=== PATIENT | male | born 1945 | race Caucasian/White ===

== ENCOUNTER 2016-11-27 15:00 | Inpatient (IN) | payer MEDICARE, OTHER ==
[~2016-11-27] VITALS: Ht 175.3 cm; Wt 83.8 kg
--- NOTE | ~2016-11-27 | DS ---
PATIENT'S NAME: SUZIE FREDERICK [facility] AGE: 71 Y [address] ROOM: [place] [address] LOCATION: G3N ADMIT DATE: 12/03/2016 Discharge Summary DISCHARGE DATE: 12/05/2016 FAMILY PHYSICIAN: Goran Cleveland MD ATTENDING PHYSICIAN: Sav Ness PRIMARY DIAGNOSIS: Degenerative joint disease of the left knee. SECONDARY DIAGNOSIS: 1. Tobacco use. 2. Diabetes mellitus. 3. Hypertension. 4. Dyslipidemia. PROCEDURE PERFORMED: Left total knee arthroplasty. HISTORY: The patient is a 71-year-old male, who presents with advanced left knee degenerative joint disease and associated severely compromised activities of daily living. The patient has decided to proceed with total knee arthroplasty after having been thoroughly counseled regarding the risks, benefits, limitations and alternatives. Please refer to the outpatient clinic notes and admission history and physical for this patient. HOSPITAL COURSE: The patient underwent a left total knee arthroplasty on 12/03/2016 without complications. Spinal anesthesia plus adductor canal block plus periarticular local anesthesia was utilized. The patient received 24 hours of perioperative prophylactic antibiotics and remained hemodynamically stable, neurovascularly intact throughout the entire hospital course. The postoperative prophylactic deep venous thrombosis prophylaxis consisted of Xarelto, early mobilization and pneumatic compression devices. Daily physical therapy for gait training, transfer training range of motion and quadriceps isometric exercises were received. The patient progressed well in physical therapy. On the date of discharge, 12/05/2016, the incision at the knee was healing well and showed no signs of infection. DISPOSITION: Home. DISCHARGE ACTIVITY: The patient is to bear weight as tolerated with range of motion and quadriceps isometric exercises as instructed. The operative extremity is to be elevated at least 90% of the day. There is to be sterile 4x4 gauze dressings to the incision daily. Dr. Ness is to be notified immediately if there is any increased pain, fevers, chills, erythema, or drainage. DISCHARGE MEDICATIONS: PATIENT'S NAME: SUZIE FREDERICK [facility] AGE: 71 Y [address] ROOM: [address] [address] LOCATION: G3N ADMIT DATE: 12/03/2016 Discharge Summary DISCHARGE DATE: 12/05/2016 FAMILY PHYSICIAN: Goran Cleveland MD ATTENDING PHYSICIAN: Sav Ness 1. Xarelto 10 mg 1 tablet p.o. daily for 12 days for postoperative DVT prophylaxis. 2. Hydromorphone 2 mg 1 to 2 tablets p.o. every 4 hours p.r.n. for pain. 3. Diazepam 5 mg 1/2 to 1 tablet p.o. every 6 hours p.r.n. for muscle spasms. 4. Nicotine 21 mg patch. He is then instructed to continue all of his other preadmission medications as instructed by his internal medicine doctor. FOLLOWUP: Followup appointment is to be with Dr. Ness's office on 12/10/2016 for his initial followup appointment with x-rays of the knee and suture removal at that time. YVES TRAMMELL PA-C FOR SAV NESS MD SMW/modl /[id number] d: 12/10/16 0530 t: 12/10/16 0911, DISCHARGE SUMMARY
--- NOTE | ~2016-11-27 | OR ---
PATIENT'S NAME: SUZIE FREDERICK [facility] AGE: 71 Y [address] ROOM: [place] [id number] LOCATION: [facility] ADMIT DATE: 12/03/2016 OR/Procedure Report DISCHARGE DATE: FAMILY PHYSICIAN: Goran Cleveland MD ATTENDING PHYSICIAN: SAV NESS SURGEON: Sav Ness MD ANNEALING OVEN OPERATOR: 1. Huey Wade CST/ELA. 2. Sav Dewey. DATE OF PROCEDURE: 12/03/2016 PRE-OP DIAGNOSIS: Degenerative joint disease left knee. POST-OP DIAGNOSIS: Degenerative joint disease left knee. OPERATION: Left total knee arthroplasty with computer navigation. ANESTHESIA: Spinal anesthesia plus adductor canal block plus periarticular local anesthesia (ropivacaine with epinephrine and Toradol). ESTIMATED BLOOD LOSS: Less than 10 mL. DRAIN: None. SPECIMEN: None. COMPLICATIONS: None. IMPLANT SYSTEM: [place] Triathlon Size 6 left posterior stabilized femoral component Size 5 universal modular tibial baseplate 9 mm posterior stabilized size 5 X3 tibial polyethylene insert 32 mm Oval X3 patella component (triple pegged). INDICATIONS FOR SURGERY: The patient is a 71-year-old male who presents with advanced left knee degenerative joint disease and associated severely compromised activities of daily living. The patient has decided to proceed with knee replacement after having been thoroughly counseled regarding the associated risks, benefits, and limitations. We have specifically reviewed the risks and implications of infection, deep venous thrombosis, pulmonary embolism, mortality, neurovascular complications, blood transfusion (and associated potential for disease transmission or transfusion reaction), stiffness, instability, mechanical deterioration of the components (due to wear and or loosening), and the potential need for revision. We have also emphasized the importance of active involvement and compliance with post- operative physical therapy as a means of optimizing range of motion and PATIENT'S NAME: SUZIE FR[facility]ERICK [facility] AGE: 71 Y [address] ROOM: [place] [address] LOCATION: [facility] ADMIT DATE: 12/03/2016 OR/Procedure Report DISCHARGE DATE: FAMILY PHYSICIAN: Goran Cleveland MD ATTENDING PHYSICIAN: SAV NESS functional recovery. Informed consent has been granted. DESCRIPTION OF PROCEDURE: The patient was positioned supine after administration of anesthesia and prophylactic antibiotics. A well-padded pneumatic tourniquet was placed around the left proximal thigh, and the left lower extremity was prepped and draped with vigilant sterile technique. The patient's name as well as the intended operative side and procedure were confirmed with a verbal time-out involving myself, the circulating nurse, the scrub nurse, and the anesthesiologist. Examination under anesthesia demonstrated no active skin lesions or masses. There were no significant preexisting scars. There was no erythema. There was no abnormal warmth. There was a moderate effusion. Range of motion under anesthesia was from full extension to 130 degrees of flexion. There was no ligamentous insufficiency. The left lower extremity was elevated and exsanguinated with an Esmarch wrap, and the pneumatic tourniquet was inflated to 300mmHg. The knee was approached through a longitudinal midline incision. A medial parapatellar arthrotomy was performed and the patella was everted. Examination of the joint space demonstrated a large amount of benign-appearing translucent synovial fluid. There were no loose bodies. There was no significant synovitis. There was a large popliteal cyst, which I decompressed into the posteromedial aspect of the joint space by dilating its point of communication. There was a small osteophyte at the intercondylar notch. The cruciate ligaments were intact. There was full-thickness loss of articular cartilage involving 90% of the medial femoral condyle and the anteromedial 80% of the medial tibial plateau. There was a large osteophyte at the medial femoral condyle. There were small osteophytes at the medial tibial plateau; lateral femoral condyle; lateral femoral trochlea; and the superior, lateral, and medial margins of the patella. 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 There was extensive chondrocalcinosis throughout the femoral trochlea and moderate chondrocalcinosis at the medial and lateral menisci. There was a 1 x 2 cm diameter region of high-grade partial thickness articular cartilage loss at the medial aspect of the lateral femoral condyle. There were moderate grade 3 degenerative changes at the medial half of the lateral tibial plateau. There was mild inner perimeter tearing at the lateral meniscus and moderate inner perimeter degenerative tearing at the medial meniscus. Remnants of the menisci and cruciate ligaments were excised. The [employer] navigation femoral tracker was pinned in place at the distal aspect of the femoral trochlea. Absence of motion between the femur and the tracking PATIENT'S NAME: SUZIE FREDERICK [facility] AGE: 71 Y [address] ROOM: [id number] [place], [place] [address] LOCATION: [facility] ADMIT DATE: 12/03/2016 OR/Procedure Report DISCHARGE DATE: FAMILY PHYSICIAN: Goran Cleveland MD ATTENDING PHYSICIAN: SAV NESS device was confirmed manually and visually. Femoral osseous landmarks were obtained in order to calibrate the computer navigation system. Landmarks included the center of rotation of the ipsilateral hip, the center-point of the distal femur, the femoral AP axis, 57 points on the medial femoral condyle articular surface, and 57 points on the lateral femoral condyle articular surface. The [employer] computer navigation system was subsequently utilized to position the distal femoral resection block such that the distal femoral resection was performed perfectly perpendicular to the femoral mechanical axis. The distal femoral resection was performed with a 3FLOZ oscillating saw. The [employer] computer navigation tibial tracker was pinned in place at the anterior aspect of the tibial plateau. Absence of motion between the tibia and the tracking device was confirmed manually and visually. Tibial osseous landmarks were obtained in order to calibrate the computer navigation system. Landmarks included the center-point of the tibial plateau, the AP tibial axis, 57 points on the medial tibial plateau articular surface, 57 points on the lateral tibial plateau articular surface, the medial malleolus, and the lateral malleolus. The [employer] computer navigation system was subsequently utilized to position the proximal tibial resection block such that the proximal tibial resection was performed perfectly perpendicular to the tibial mechanical axis. The proximal tibial resection was performed with a [employer] Precision oscillating saw. Perpendicularity of the tibial resection with respect to the tibial shaft axis was reconfirmed by inserting a spacer- block attached to an extramedullary guide shaniqua. External rotation of the anterior and posterior femoral resections was set parallel to the epicondylar axis and carefully adjusted in order to create a rectangular flexion gap. The box resection was performed with a reciprocating saw. Anterior and posterior chamfer resections were performed with the oscillating saw. Posterior condyle osteophytes were excised with an osteotome. All other osteophytes were excised with a rongeur. Resection of all remnants of the menisci was reconfirmed. Flexion and extension gaps were confirmed to be symmetric and well balanced with a spacer-block technique. The patella resection was performed with an oscillating saw such that the composite thickness of the reconstructed patella was equivalent to the thickness of the nisqually patella. Patella tracking was confirmed to be optimal. Patella tracking was optimal, and there was no need for a lateral retinacular release. All trial components were removed and all prepared osseous surfaces were thoroughly irrigated with pulsatile saline lavage and dried prior to cementing all three components in a single stage using Bontera Simplex cement containing pre-mixed tobramycin. All extruded excess cement was removed. The entire PATIENT'S NAME: SUZIE FR[facility]ICK [facility] AGE: 71 Y [address] ROOM: [address] [address] LOCATION: [facility] ADMIT DATE: 12/03/2016 OR/Procedure Report DISCHARGE DATE: FAMILY PHYSICIAN: Goran Cleveland MD ATTENDING PHYSICIAN: SAV NESS joint space was thoroughly inspected and thoroughly irrigated with bacteriostatic pulsatile saline lavage to assure that there was no residual debris of any sort. Final range of motion was full extension (with no passive hyperextension) to 130 degrees of flexion. Patella tracking was reconfirmed to be optimal. There was excellent anteroposterior stability at 90 degrees of flexion. There was less than 1 mm of medial lift-off to valgus stress in full extension. There was less than 1 mm of lateral lift-off to varus stress in full extension. The arthrotomy was closed with multiple simple and yrerbm-ib-mitey interrupted #1 Vicryl. Subcutaneous tissues were thoroughly re-irrigated with bacteriostatic pulsatile saline lavage. Subcutaneous tissues were re- approximated with simple buried interrupted #0 Vicryl sutures. The skin was closed with simple buried interrupted 2-0 Vicryl sutures followed by surgical jere. The dressing consisted of Xeroform gauze, 4x4 gauze, ABD pads and two 6-inch Kp Wraps. There were no intra-operative complications. MD MADELAINE ZAPATA/sixto /[id number] d: 12/03/16 1825 t: 12/03/16 2115, OPERATIVE SUMMARY
[2016-11-27] MEDS ORDERED: GLUCOPHAGE1000 MG PO (16:12)
[2016-11-27] MEDS ORDERED: PRINIVIL OR ZES10 MG PO (16:14)
[2016-11-27] MEDS ORDERED: LIPITOR10 MG PO (16:15)
[2016-11-27] MEDS ORDERED: LEVOTHROID(SY175 MCG PO (16:15)
[2016-11-27] MEDS ORDERED: ZANTAC300 MG PO (16:16)
[2016-11-27] MEDS ORDERED: FOLIC ACID1 MG PO (16:16)
[2016-11-27] MEDS ORDERED: ASPIRIN EC81 MG PO (16:16)
[2016-11-27] MEDS ORDERED: FEOSOL325 MG PO (16:16)
[2016-11-27] MEDS ORDERED: THERA-VITE W/ B1 TAB PO (16:17)
--- NOTE | 2016-12-03 13:59 | NUR ---
Introduced self to pt and his family. Gave the family a tour of [address], as well as advised them of our [employer] Investigator program. Instructed him to do 100 ankle pumps/hour and 10 breaths/hour using the Incentive Spirometer. He plans to go home after dismissal, has all equipment at home.
--- NOTE | 2016-12-03 16:27 | NUR ---
Significant Event:Received from PACU at 1020. Will be on routine VS. CSM WNL. Dressing dry and intact. Up to recliner with PT. Voided 50ml thus far. Taking po well. Dilaudid 2mg at 1423. Follow up:
--- NOTE | 2016-12-04 04:16 | NUR ---
Patient alert and oriented x3, very pleasant and cooperative, pain has been under control this shift, has rested well, transfers very well one assist with walker and gaitbelt, dressing is clean dry and intact.
--- NOTE | 2016-12-04 09:50 | NUR ---
0950 Introduced self/role to patient. He lives with his in [place]. Plans to return there. No additional DME needed. Added my name to his marker board, will continue to follow.
--- NOTE | 2016-12-04 10:03 | NUR ---
[id number] [facility] Nursing Students, Monitored assessment, documentation and and medication administration
--- NOTE | 2016-12-04 18:43 | NUR ---
Significant Event: Alert & oriented but drowsy at times, [place]. VSS, afebirle, room air. Dilaudid last given at 1725. CSM intact. Bed alarm on, needs reminders to call for help. 1 assist, walker. Refused foot pumps.
--- NOTE | 2016-12-05 03:53 | NUR ---
Significant Event: Refused foot pumps. Impulsive at times. Dressing is clean, dry and intact. CSM WNL. Accu check. Last Dilaudid at 0131. 1 assist with transfers. Voids without difficulty. On room air. Follow up:
[2016-12-05] MEDS ORDERED: COLACE100 MG PO (11:20)
[2016-12-05] MEDS ORDERED: TYLENOL EXTRA500 MG PO (11:20)
[2016-12-05] MEDS ORDERED: XARELTO10 MG PO (11:22)
[2016-12-05] MEDS ORDERED: MIRALAX17 GM PO (11:22)
[2016-12-05] MEDS ORDERED: VALIUM5 MG PO (11:23)
[2016-12-05] MEDS ORDERED: DILAUDID 2MG(HYD2 MG PO (11:24)
--- NOTE | 2016-12-05 16:01 | NUR ---
Significant Event: DISCHARGED THIS AM TO HOME WITH HIS . REVIEWED MEDICATION ORDERS WELL APPOINTMENTS SCHEDULED. AMBULATED WITH 1 SBA USING GAIT BELT AND WALKER. PRN DILAUDID GIVEN X2 PRIOR TO DISCHARGE. PLEASANT AND COOPERATIVE WITH CARES. RIGHT KNEE INCISION ТАТЬЯНА WELL APPROXIMATED WITHOUT DRAINAGE. INCISION COVERED WITH GAUZE AND TUBIGRIP. Follow up:
== END 2016-12-05 12:01 | disposition disaster alternative care site (69) | DRG 470 ==
LOC: G3N 12-03 05:02
PROVIDERS: ADMIT Orthopaedic Surgery
DX: M17.12 Unilateral primary osteoarthritis, left knee (principal); I10 Essential (primary) hypertension; M11.262 Other chondrocalcinosis, left knee; E78.5 Hyperlipidemia, unspecified; E03.9 Hypothyroidism, unspecified; Z72.0 Tobacco use; K21.9 Gastro-esophageal reflux disease without esophagitis; Z79.82 Long term (current) use of aspirin; Z79.52 Long term (current) use of systemic steroids; Z96.651 Presence of right artificial knee joint; H91.90 Unspecified hearing loss, unspecified ear
CPT/HCPCS: C1713; C1776; J0690; J1100; J1885; J2001; J2250; J2405; J2795; J7030; J7120

== ENCOUNTER → 2016-11-28 | Outpatient (CLI) | payer MEDICARE, OTHER ==
[~2016-11-28] MED LIST: ASPIRIN EC81 MG PO; COLACE100 MG PO; DILAUDID 2MG(HYD2 MG PO; FEOSOL325 MG PO; FOLIC ACID1 MG PO; GLUCOPHAGE1000 MG PO; LEVOTHROID(SY175 MCG PO; LIPITOR10 MG PO; MIRALAX17 GM PO; PRINIVIL OR ZES10 MG PO; THERA-VITE W/ B1 TAB PO; TYLENOL EXTRA500 MG PO; VALIUM5 MG PO; XARELTO10 MG PO; ZANTAC300 MG PO
[2016-11-28 10:50] LABS: BILIRUBIN URINE NEGATIVE (NEGATIVE); BLOOD URINE NEGATIVE /UL (NEGATIVE); COLOR URINE YELLOW (YELLOW); GLUCOSE URINE NEGATIVE (NEGATIVE); KETONE URINE NEGATIVE (NEGATIVE); LEUKOCYTES URINE NEGATIVE /UL (NEGATIVE); NITRITE URINE NEGATIVE (NEGATIVE); PROTEIN URINE NEGATIVE (NEGATIVE); SPEC GRAVITY URINE 1.005 (1.003-1.035); TURBIDITY URINE CLEAR (CLEAR); UROBILINOGEN URINE NORMAL (NORMAL)
== END | disposition disaster alternative care site (69) ==
LOC: GNJRC 09:37
PROVIDERS: Orthopaedic Surgery
DX: Z01.812 Encounter for preprocedural laboratory examination (principal); M17.12 Unilateral primary osteoarthritis, left knee

== ENCOUNTER → 2016-11-29 | Outpatient (CLI) | payer MEDICARE, OTHER ==
--- NOTE | ~2016-11-29 | ESTC ---
Cardiac Perfusion Imaging Demographics Patient Name YOLY LARSEN Gender Male W Patient Number [id number] Race Visit Number [id number] Ethnicity Corporate ID Room Number Accession Number [id number] Height Date of 1945 Weight Age 71 year(s) BSA Referring Physician Hilda Villalba Interpreting Hilda Date of study 11/29/2016 Physician Deejay Supervising /STEVE QURESHI Technologist Ordering Physician Deejay Powell calibration technician RT,RVT,RDCS Stress ECG Reading Blanca Ely APRN Nurse Eric Redman RN Physician The procedure was explained in detail to the patient. Risks, complications and alternative treatments were reviewed. Written consent was obtained. Medications Reviewed with Patient prior to Procedure. Procedure Procedure Type: Nuclear Stress Test:Pharmacological, Lexiscan, Cardiolite Stress Test Procedure Start time: 11/29/2016 00:00 Indications: Right Bundle Branch Block. Risk Factors The patient risk factors include:physical activity, former tobacco use, treated and controlled hypercholesterolemia, treated and controlled hypertension and diabetes mellitus. Conclusions Summary Perfusion Images: The overall quality of the study is suboptimal, due to gastrointestinal tracer uptake. Left ventricular cavity is noted to be normal on the stress and rest studies. The right ventricle is not visualized and cannot be assessed. Stress SPECT images reveal a large area of moderate to severe decreased isotope uptake involving the septal wall and adjacent inferior wall of the left ventricle. Rest SPECT imaging reveal a predominantly fixed defect in the septal wall and adjacent inferior wall . Gated SPECT imaging reveals normal wall motion. The left ventricular ejection fraction was calculated to be 55 %. Impression ECG portion of the stress test is clinically negative for ischemia by diagnostic criteria. Images reveal a large sized area of moderate to severe septal wall and adjacent inferior wall perfusion defects which appear worse on rest images, with preserved wall motion, likely an artifact. No significant reversible perfusion defects were seen. Gated wall motion is normal with LVEF 55%. There are no previous studies for comparison . Clinical correlation is recommended Stress Protocols Resting ECG Sinus rhythm with LBBB Resting HR:75 bpm Resting BP:150/69 mmHg Pre-stress physical exam: Patient assessed by Lexi STEELE prior to testing. Chest - CTA Cardio - RRR, S1, S2 Stress Protocol:Pharmacologic Peak HR:88 bpm HR response: Appropriate Peak BP:147/64 mmHg BP response: Appropriate Predicted HR: 147 bpm HR/BP product:08068 % of predicted HR: 60 Test duration: 03:00 min Reason for termination:Infusion complete ECG Findings Indeterminate ECG due to baseline abnormalities. Arrhythmias No rhythm abnormality. Symptoms No symptoms with Lexiscan infusion. Complications Procedure complication: None. Stress Interpretation Appropriate hemodynamic response to Lexiscan. No significant ST-T wave changes with Lexiscan. ECG portion is negative for ischemia by diagnostic criteria. Will correlate with nuclear images. Imaging Results Applied corrections - Motion correction applied High risk findings Summed scores - LV dilatation (TID) - Summed stress score: 5 - Summed rest score: 11 - Summed difference score: -6 Stress ejection Ejection fraction:55 % EDV :130 ml ESV :58 ml Stroke volume :72 ml LV mass :156 gr Imaging Protocols - Two Day Rest Stress Isotope:Tc99m Sestamibi IV Isotope: Tc99m Sestamibi IV Isotope dose:12.8 mCi Isotope dose:39 mCi Date:11/29/2016 07:30 Date:11/29/2016 09:29 Technique: SPECT Technique: Gated Supine SPECT Supine Scan Time:30 minutes post injection Scan Time:45-60 minutes post injection Procedure Medications - Regadenoson (Lexiscan) 0.4 mg IV over 10-15 sec. I.V. . Medical History Admission Data Admission date: 11/29/2016 Admission Time: 07:00 Hospital Status: Outpatient. Signatures dtt: DEEJAY SESAY dtd: 11/29/16 [facility] Physician Self Edit
== END | disposition disaster alternative care site (69) ==
LOC: GRAD 07:00
DX: Z01.818 Encounter for other preprocedural examination (principal); I44.7 Left bundle-branch block, unspecified; I10 Essential (primary) hypertension; E11.9 Type 2 diabetes mellitus without complications; E78.00 Pure hypercholesterolemia, unspecified; Z87.891 Personal history of nicotine dependence
CPT/HCPCS: A9500; J2785